=== PATIENT | female | born 1975 | race Caucasian/White ===

== ENCOUNTER 2018-05-05 10:31 | Emergency (ER) | payer OTHER ==
[~2018-05-05] VITALS: Ht 160 cm; Wt 90.0 kg
[2018-05-05] MEDS ORDERED: METHYLPREDNISOLONE SOD SUCC 125 MG/2 ML VIAL IV STA (15:14)
[2018-05-05] MEDS ORDERED: SODIUM CHLORIDE 0.9% 1,000 ML IV ONE (15:14)
[2018-05-05] MEDS ORDERED: ONDANSETRON HCL 4MG/2ML INJ IV STA (15:14)
[2018-05-05] MEDS ORDERED: ALBUTEROL (0.083%) 2.5MG/3ML NEB HHN STA (15:14)
[2018-05-05] MEDS ORDERED: KETOROLAC 30MG/ML VIAL IV STA (15:14)
[2018-05-05] MEDS ORDERED: AZITHROMYCIN 500 MG in DEXT 5% WATER 250 ML IV SCH (15:15)
[2018-05-05 15:49] LABS: CHLORIDE 96 mEq/L (98-107)
[2018-05-05 15:51] LABS: BASOPHILS % 0.6 % (0.0-2.0); EOSINOPHILS % 1.7 % (0.0-5.0); HCG SCREEN NEGATIVE; HEMATOCRIT. 48.4 % (36.0-48.0); LYMPHOCYTES % 24.5 % (20.0-50.0); MEAN CORPUSCULAR HEMOGLOBIN 30.1 pg (28.0-32.0); MEAN CORPUSCULAR VOLUME 85.7 fL (81.0-99.0); MEAN PLATELET VOLUME 8.5 fl (7.4-10.4); MONOCYTES % 7.2 % (2.0-8.0); PARTIAL THROMBOPLASTIN TIME 26.1 sec (23.4-31.0); PLATELET 289 x1000/uL (130-400); PROTHROMBIN TIME 10.5 sec (9.1-11.1); RED BLOOD CELL COUNT 5.64 mill/uL (4.2-5.4); RED CELL DISTRIBUTION WIDTH 12.7 % (11.6-14.6)
[2018-05-05] MEDS ORDERED: POTASSIUM CHLORIDE 20MEQ TABLET SR PO ONE (17:30)
[2018-05-05 18:00] VITALS: BP 124/78
== END 2018-05-05 18:18 | disposition home or self-care (01) ==
LOC: ER 10:31
DX: J40 Bronchitis, not specified as acute or chronic (principal); E86.0 Dehydration; E11.9 Type 2 diabetes mellitus without complications; I10 Essential (primary) hypertension; E78.00 Pure hypercholesterolemia, unspecified; Z98.890 Other specified postprocedural states
CPT/HCPCS: 36415; 71045; 80053; 83880; 84484; 84703; 85025; 85610; 85730; 87040; 93005; 94640; 96365; 96366; 96375; 99284; J0456; J1885; J2405; J2930; J7030; J7060; J7611